=== PATIENT | male | born 1985 | race Caucasian/White ===

== ENCOUNTER 2019-12-17 20:08 | Emergency (ER) | payer OTHER ==
[~2019-12-17] VITALS: Ht 172.7 cm; Wt 72.6 kg
[2019-12-17 20:17] VITALS: Ht 172.7 cm; Wt 72.6 kg
[2019-12-17 20:58] LABS: BASOPHILS 0.8 % (0-2); EOSINOPHILS 3.4 % (0-7); HEMOGLOBIN 14.7 g/dL (13.5-17.5); IMMATURE GRANULOCYTES 0.1 % (0-5); LYMPHOCYTES 25.8 % (15-50); MCH 28.4 pg (26.0-34.0); MCHC 34.2 g/dL (31.0-37.0); MCV 83.2 fL (80.0-100.0); MEAN PLATELET VOLUME 9.1 fL (7.4-10.4); MONOCYTES 7.6 % (2-11); NEUTROPHILS 62.3 % (40-80); PLATELET COUNT 272 10x3/uL (130-400); RBC 5.17 10x6/uL (4.20-6.10); RDW 13.8 % (11.5-14.5)
[2019-12-17 21:08] LABS: CALC OSMOLALITY 280 mosm/kg (275-300); CARBON DIOXIDE 28.7 mmol/L (21.0-32.0); CHLORIDE - SERUM 105 mmol/L (98-107); GLUCOSE 84 mg/dL (74-106); POTASSIUM - SERUM 3.9 mmol/L (3.5-5.1); SODIUM 142 mmol/L (136-145); UREA NITROGEN 10 mg/dL (7-18); eGFR NON AFRICAN AMERICAN > 90 mL/min (90-120)
[2019-12-17 21:11] LABS: BILIRUBIN NEGATIVE (NEGATIVE); KETONE NEGATIVE (NEGATIVE); NITRITE NEGATIVE (NEGATIVE); UROBILINOGEN NORMAL (NORMAL)
[2019-12-17 21:12] LABS: ALKALINE PHOSPHATASE 75 U/L (30-120); ALT (SGPT) 15 U/L (10-68); BILIRUBIN - TOTAL 0.46 mg/dL (0.2-1.3); MAGNESIUM - SERUM 2.2 mg/dL (1.8-2.4); PROTEIN - SERUM 7.2 g/dL (6.4-8.2)
[2019-12-17 21:24] LABS: UDS - AMPHET NEGATIVE QUAL (NEGATIVE); UDS - BARB NEGATIVE QUAL (NEGATIVE); UDS - BENZO NEGATIVE QUAL (NEGATIVE); UDS - COCAINE NEGATIVE QUAL (NEGATIVE); UDS - OPIATE NEGATIVE QUAL (NEGATIVE); UDS - PCP NEGATIVE QUAL (NEGATIVE); UDS - THC NEGATIVE QUAL (NEGATIVE)
[2019-12-17 21:26] LABS: WHITE CELLS - URINE 0-5 /hpf (0-5)
[2019-12-17 21:27] LABS: BACTERIA FEW /hpf (NONE SEEN); EPITHELIAL CELLS 0-5 /hpf (0-5)
--- NOTE | 2019-12-17 21:58 | NUR ---
DR VILLALBA NOTIFIED AND REVIEWED PT's BEHAVIOR AND ASSESSMENT RESULTS. PT IS A LOW RISK PER DR VILLALBA. DR VILLALBA STATED TO GIVE RESURCES TO PT AT TIME OF DISCHARGE. RESOURCES REVIEWED WITH PT AND HE VERBALIZED UNDERSTANDING.
[2019-12-18 08:59] VITALS: BP 118/72
== END 2019-12-18 09:00 ==
LOC: D.ER 20:08
PROVIDERS: Family Medicine
DX: R45.851 Suicidal ideations (principal); R31.21 Asymptomatic microscopic hematuria; F32.9 Major depressive disorder, single episode, unspecified; R44.0 Auditory hallucinations; R44.2 Other hallucinations